=== PATIENT | male | born 1980 | race Caucasian/White ===

== ENCOUNTER 2022-01-21 13:48 | Emergency (ER) | payer OTHER ==
[~2022-01-21] VITALS: Ht 172.7 cm; Wt 95.0 kg
[2022-01-21 14:01] VITALS: BP 133/91
[2022-01-21] MEDS ORDERED: CEPH500C2 MT (15:45)
[2022-01-21] MEDS ORDERED: NAPR-1176 MT (15:45)
[2022-01-21] MEDS ORDERED: LIDO700A15 TP (15:46)
[2022-01-21] MEDS ORDERED: SULF1TAB48 MT (15:46)
== END 2022-01-21 16:13 | disposition home or self-care (01) ==
LOC: ER 13:48
DX: L03.113 Cellulitis of right upper limb (principal); M54.50 Low back pain, unspecified; Z90.49 Acquired absence of other specified parts of digestive tract; Z98.890 Other specified postprocedural states
CPT/HCPCS: 99283